=== PATIENT | female | born 2000 | race Two or more races ===

== ENCOUNTER 2024-02-04 18:11 | Emergency (ER) | payer OTHER ==
[~2024-02-04] VITALS: Ht 160 cm; Wt 58.1 kg
[2024-02-04] MEDS ORDERED: IBUprofen 400 MG TABLET PO STA (21:03)
[2024-02-04] MEDS ORDERED: MUPIROCIN15 GM TOP (21:17)
== END 2024-02-04 21:36 | disposition home or self-care (01) ==
LOC: ER 18:12
DX: S90.511A Abrasion, right ankle, initial encounter (principal); S80.212A Abrasion, left knee, initial encounter; S80.812A Abrasion, left lower leg, initial encounter; W19.XXXA Unspecified fall, initial encounter; Y93.9 Activity, unspecified; Y92.89 Other specified places as the place of occurrence of the external cause; Y99.9 Unspecified external cause status